=== PATIENT | male | born 1995 | race Caucasian/White ===

== ENCOUNTER 2024-10-15 07:19 | Day surgery (SDC) | payer OTHER ==
[2024-10-14 12:59] VITALS: BMI 26.2
[2024-10-15] MEDS ORDERED: CEFAZOLIN 2 GM VIAL ONE (10:26)
[2024-10-15] MEDS ORDERED: Midazolam HCl 2 mg/2 ml Vial ONE (10:29)
[2024-10-15] MEDS ORDERED: fentaNYL 50 mcg/mL 1 mL Vial ONE ×3 (10:29→14:15)
[2024-10-15] MEDS ORDERED: Ondansetron PF 4 MG/2 ML Vial ONE (10:50)
[2024-10-15] MEDS ORDERED: Lidocaine 1% PF 5 ML VIAL ONE (10:50)
[2024-10-15] MEDS ORDERED: Ketorolac Tromethamine 30 MG (1 mL) VIAL ONE (10:50)
[2024-10-15] MEDS ORDERED: fentaNYL PF 100 MCG/2 ML SYRINGE ONE (10:50)
[2024-10-15] MEDS ORDERED: PROPOFOL 20 ML ONE (10:50)
[2024-10-15] MEDS ORDERED: Sterile Water 10 ML ONE (12:07)
[2024-10-15] MEDS ORDERED: Meperidine HCl/PF 25 MG (1 mL) VIAL ONE (12:55)
[2024-10-15] MEDS ORDERED: HYDROcodone/Acetaminophen 5/325 mg Tablet ONE (15:47)
== END 2024-10-15 16:07 | disposition home or self-care (01) ==
LOC: SDC 07:19
PROVIDERS: ATTEND Student in an Organized Health Care Education/Training Program
PROC: 0SQD4ZZ Repair Left Knee Joint, Percutaneous Endoscopic Approach (ICD-10-PCS; principal; 2024-10-15)
DX: S83.242A Other tear of medial meniscus, current injury, left knee, initial encounter (principal); G89.29 Other chronic pain; Z91.013 Allergy to seafood; Z91.041 Radiographic dye allergy status; X58.XXXA Exposure to other specified factors, initial encounter
CPT/HCPCS: C1713; J1885; J2175; J2250; J2405; J2704; J3010